=== PATIENT | male | born 1965 | race Hispanic/Latino ===

== ENCOUNTER → 2017-07-13 | Outpatient (CLI) | payer OTHER | END | disposition home or self-care (01) | LOC: OIH 12:59 | PROVIDERS: ATTEND Family Medicine | DX: I10 Essential (primary) hypertension (principal) | CPT/HCPCS: 71046 ==

== ENCOUNTER → 2017-10-10 | Outpatient (CLI) | payer OTHER | END | disposition home or self-care (01) | LOC: SLP 20:40 | PROVIDERS: ATTEND Internal Medicine Cardiovascular Disease | DX: G47.30 Sleep apnea, unspecified (principal); I10 Essential (primary) hypertension; E66.9 Obesity, unspecified; R53.83 Other fatigue | CPT/HCPCS: 95810 ==

== ENCOUNTER → 2017-10-11 | Outpatient (CLI) | payer OTHER | END | disposition home or self-care (01) | LOC: OIH 11:18 | PROVIDERS: ATTEND Family Medicine | DX: M47.897 Other spondylosis, lumbosacral region (principal); M47.894 Other spondylosis, thoracic region | CPT/HCPCS: 72072; 72100 ==

== ENCOUNTER → 2018-11-25 | Outpatient (CLI) | payer OTHER ==
[~2018-11-25] MED LIST: IOHEXOL 350 MG/ML 100ML INFUS..BTL IV ONE
== END | disposition home or self-care (01) ==
LOC: RAH 08:26
PROVIDERS: ATTEND Otolaryngology Plastic Surgery within the Head & Neck
DX: H81.01 Meniere's disease, right ear (principal)
CPT/HCPCS: 70470; 70482; Q9967

== ENCOUNTER → 2020-12-24 | Outpatient (CLI) | payer OTHER | END | disposition home or self-care (01) | LOC: RAH 15:15 | PROVIDERS: ATTEND Internal Medicine | DX: E11.51 Type 2 diabetes mellitus with diabetic peripheral angiopathy without gangrene (principal); L97.512 Non-pressure chronic ulcer of other part of right foot with fat layer exposed; I73.9 Peripheral vascular disease, unspecified | CPT/HCPCS: 93926 ==

== ENCOUNTER → 2023-02-20 | Outpatient (CLI) | payer OTHER ==
[~2023-02-20] MED LIST changes: +AMLO-257 PO; +CALC-133 PO; +CHOL100040 PO; +CLOP75TA32 PO; +EVOL140P3 SQ; +FISH1CAP63 PO; +FLUT16H EN; +IBUP-2070 PO; -IOHEXOL 350 MG/ML 100ML INFUS..BTL IV ONE; +L.AC1CAP6 PO; +LORA10TA7 PO; +SULF1TAB42 PO; +VITA-382 PO
== END | disposition home or self-care (01) ==
LOC: RAH 13:51
PROVIDERS: ATTEND Urology
DX: N40.1 Benign prostatic hyperplasia with lower urinary tract symptoms (principal); E11.51 Type 2 diabetes mellitus with diabetic peripheral angiopathy without gangrene; L97.512 Non-pressure chronic ulcer of other part of right foot with fat layer exposed; I73.9 Peripheral vascular disease, unspecified
CPT/HCPCS: 76770

== ENCOUNTER → 2023-04-26 | Outpatient (CLI) | payer OTHER | END | disposition home or self-care (01) | LOC: LAB 08:21 | PROVIDERS: ATTEND Internal Medicine Cardiovascular Disease | DX: I10 Essential (primary) hypertension (principal) | CPT/HCPCS: 36415; 80048 ==

== ENCOUNTER → 2025-04-01 | Outpatient (CLI) | payer OTHER, MEDICAID ==
[~2025-04-01] MED LIST changes: +IBUP-1492 PO; -IBUP-2070 PO
--- NOTE | 2025-04-01 16:22 | HMCIMG ---
EXAM: US for Deep Venous Thrombosis, Right Lower Extremity. CLINICAL HISTORY: Right leg oedema. History of trauma with complex external orthopaedic fixation (Ant. Chit complex ext. fix CM). Rule out DVT. TECHNIQUE: Real-time duplex ultrasound examination of the veins of the right lower extremity performed with colour Doppler flow, spectral waveform analysis, and compression. COMPARISON: None provided. FINDINGS: DEEP VEINS: Study technically limited as patient was scanned in a wheelchair and refused supine positioning. The common femoral, profunda femoris, superficial femoral, popliteal, and posterior tibial veins are visualised, compressible, and show normal colour flow and spectral augmentation. No echogenic intraluminal thrombus identified. SOFT TISSUES: No popliteal fossa cyst, subcutaneous oedema, or other abnormality. IMPRESSION: 1. No evidence of deep vein thrombosis in the right lower extremity, with normal compressibility and flow in the common femoral, profunda femoris, superficial femoral, popliteal, and posterior tibial veins. 2. Study technically limited due to patient being scanned in a wheelchair and refusing supine positioning. 3. No popliteal fossa cyst or subcutaneous oedema identified. /Phil
== END | disposition home or self-care (01) ==
LOC: RAH 13:13
PROVIDERS: ATTEND Internal Medicine
DX: I83.891 Varicose veins of right lower extremity with other complications (principal)
CPT/HCPCS: 93971